=== PATIENT | female | born 1975 | race Caucasian/White ===

== ENCOUNTER 2019-10-09 14:20 | Outpatient (CLI) | payer OTHER, SELFPAY ==
[2019-10-09 14:30] LABS: Basophils Absolute Auto 0.05 K/mm3 (0.00-0.10); Basophils Percent Auto 0.4 % (0.0-1.0); Eosinophils Absolute Auto 0.43 K/mm3 (0.02-0.50); Eosinophils Percent Auto 3.2 % (1.0-6.0); Hematocrit 39.7 % (35.0-49.0); Hemoglobin 12.7 g/dL (12.0-15.0); Immature Granulocyte Absolute 0.06 K/mm3 (0.00-0.00); Immature Granulocyte Percent A 0.4 % (0.0-0.0); Lymphocytes Absolute Auto 2.65 K/mm3 (1.10-4.50); Lymphocytes Percent Auto 19.5 % (18.0-42.0); Mean Corpuscular Volume 87.4 fL (78.0-102.0); Mean Platelet Volume 9.5 fl (9.2-11.8); Monocytes Absolute Auto 0.67 K/mm3 (0.10-0.90); Monocytes Percent Auto 4.9 % (2.0-11.0); Neutrophils Absolute Auto 9.7 K/mm3 (1.7-7.2); Neutrophils Percent Auto 71.6 % (50.0-70.0); Platelet Count Result 310 K/mm3 (150-420); Red Blood Count 4.54 M/mm3 (4.20-5.40); Red Cell Distribution Width 13.2 % (11.6-14.4); White Blood Count 13.6 K/mm3 (4.8-10.8)
[2019-10-09 14:43] LABS: Hemoglobin A1C 6.2 % (<5.7)
[2019-10-09 15:47] LABS: Alanine Aminotransferase 20 U/L (14-59); Albumin Level 3.9 g/dL (3.4-5.0); Alkaline Phosphatase 106 U/L (46-116); Anion Gap 9.3 mmol/L (7-16); Aspartate Amino Transferase 14 U/L (15-37); Bilirubin,Total 0.4 mg/dL (0.00-1.00); Blood Urea Nitrogen 11 mg/dL (7-18); Calcium 9.2 mg/dL (8.5-10.1); Carbon Dioxide 29 mmol/L (21-32); Chloride 105 mmol/L (98-108); Cholesterol 204 mg/dL (0-200); Estimated Glomerular Filt Rate > 60; Glucose 86 mg/dL (70-99); HDL Direct 48 mg/dL (40-60); LDL Cholesterol Calculated 133 mg/dL (<130); Osmolality Calculated 286 mOsm/kg (285-295); Potassium 4.3 mmol/L (3.5-5.1); Sodium 139 mmol/L (136-145); Total Protein 7.2 g/dL (6.4-8.2); Triglycerides 117 mg/dL (0-150)
== END 2019-10-09 14:21 | disposition home or self-care (01) ==
PROVIDERS: PCP Family Medicine; Visit Provider Family Medicine
DX: Z00.00 Encounter for general adult medical examination without abnormal findings (principal); E66.9 Obesity, unspecified; Z86.32 Personal history of gestational diabetes
CPT/HCPCS: 36415; 80053; 80061; 83036; 85025

== ENCOUNTER 2020-02-13 14:27 | Outpatient (CLI) | payer OTHER, SELFPAY ==
--- NOTE | 2020-02-13 14:29 | ECG_ITS ---
Measurements Intervals [place] Rate: 56 P: 42 MD: 146 QRS: 64 QRSD: 98 T: 63 QT: 404 QTc: 390 Interpretive Statements SINUS BRADYCARDIA EARLY PRECORDIAL R/S TRANSITION BORDERLINE ECG Electronically Signed On 02-13-2020 14:58:27 CDT by Fred Davis D.O.
[2020-02-13 14:38] LABS: Hematocrit 39.3 % (35.0-49.0); Hemoglobin 12.4 g/dL (12.0-15.0); Mean Corpuscular HGB Conc 31.6 g/dL (32.0-36.0); Mean Corpuscular Hemoglobin 28.1 pg (27.0-31.0); Mean Corpuscular Volume 88.9 fL (78.0-102.0); Mean Platelet Volume 9.8 fl (9.2-11.8); Platelet Count Result 276 K/mm3 (150-420); Red Blood Count 4.42 M/mm3 (4.20-5.40); Red Cell Distribution Width 13.2 % (11.6-14.4); White Blood Count 8.8 K/mm3 (4.8-10.8)
[2020-02-13 14:59] LABS: Prothrombin Time 10.3 Seconds (9.64-11.0)
[2020-02-13 15:30] LABS: Alanine Aminotransferase 20 U/L (14-59); Albumin Level 3.7 g/dL (3.4-5.0); Alkaline Phosphatase 99 U/L (46-116); Anion Gap 8.3 mmol/L (7-16); Aspartate Amino Transferase 15 U/L (15-37); Bilirubin,Total 0.5 mg/dL (0.00-1.00); Blood Urea Nitrogen 10 mg/dL (7-18); Calcium 9.1 mg/dL (8.5-10.1); Carbon Dioxide 31 mmol/L (21-32); Chloride 104 mmol/L (98-108); Estimated Glomerular Filt Rate > 60; Glucose 84 mg/dL (70-99); Osmolality Calculated 286 mOsm/kg (285-295); Potassium 4.3 mmol/L (3.5-5.1); Sodium 139 mmol/L (136-145); Total Protein 7.2 g/dL (6.4-8.2)
== END 2020-02-13 14:28 | disposition home or self-care (01) ==
LOC: CHSLAB 14:29
PROVIDERS: PCP Family Medicine; Visit Provider Family Medicine
DX: Z01.818 Encounter for other preprocedural examination (principal)
CPT/HCPCS: 36415; 80053; 85027; 85610; 93005

== ENCOUNTER 2020-09-06 16:07 | Outpatient (CLI) | payer OTHER, SELFPAY ==
[2020-09-08 22:34] LABS: SARS-CoV-2 RNA PCR Negative
== END 2020-09-06 16:08 | disposition home or self-care (01) ==
LOC: CHSLAB 16:09
PROVIDERS: PCP Family Medicine; Visit Provider Family Medicine
DX: R05 Cough (principal); Z20.822 Contact with and (suspected) exposure to COVID-19
CPT/HCPCS: C9803; U0003; U0005

== ENCOUNTER 2023-01-11 14:20 | Outpatient (CLI) | payer OTHER, SELFPAY ==
--- NOTE | ~2023-01-11 | XR_ITS ---
XR ankle LT min 3V 01/11/2023 14:45 INDICATION: Left ankle pain PROCEDURE: 4 views left ankle COMPARISON: No prior studies for comparison. FINDINGS: Fracture, dislocation or subluxation is not identified. Ankle mortise intact. The soft tiss ues appear within normal limits. No foreign bodies are identified. Prominent degenerative calcaneal enthesophyte at the plantar surface. IMPRESSION: 1: NO ACUTE BONE OR JOINT ABNORMALITY IDENTIFIED. Reviewed, dictated and finalized at location L.
--- NOTE | ~2023-01-11 | XR_ITS ---
XR lumbar spine 2-3V 01/11/2023 14:45 Indication: Back pain Procedure: 4 views lumbar spine Comparison: No prior studies for comparison. Findings: There is mild dextroscoliosis. Vertebral body heights are maintained. No fracture or trauma tic malalignment. There is mild disc narrowing at L4-5 and L5-S1. No evidence for spondylolisthesis. Pedicles intact. Impression: 1: Mild lumbar spondylosis with dextroscoliosis. Reviewed, dictated and finalized at location [] Impression: 1: Mild lumbar spondylosis with dextroscoliosis.
--- NOTE | ~2023-01-11 | XR_ITS ---
XR hip RT min 2V 01/11/2023 14:45 Indication: Right hip pain after fall Procedure: 2 views right hip Comparison: No prior studies for comparison. Findings: No fracture, subluxation or dislocation. No significant soft tissue abnormality. No foreign bodies. Impression: 1: No significant bone or joint abnormality. Reviewed, dictated and finalized at location L. Impression: 1: No significant bone or joint abnormality.
== END 2023-01-11 14:21 | disposition home or self-care (01) ==
LOC: CHSIMG 14:23
PROVIDERS: PCP Family Medicine; Visit Provider Nurse Practitioner Family
DX: S99.912A Unspecified injury of left ankle, initial encounter (principal); W19.XXXA Unspecified fall, initial encounter; M43.06 Spondylolysis, lumbar region; M41.86 Other forms of scoliosis, lumbar region
CPT/HCPCS: 72100; 73502; 73610

== ENCOUNTER 2023-01-23 16:17 | Outpatient (RCR) | payer OTHER, SELFPAY ==
--- NOTE | 2023-01-23 17:31 | PTOPEVAL1 ---
Assessment and note entered by Dorita Pelayo, PT Evaluation Information Assessment Status Evaluation Diagnosis Lumbar spondylosis, scoliosis Onset 01/09/23 Subjective Information Velma Nolasco reports she slipped on some water on 01/09/23 and landed on her knees and elbows. She started having pain in her lower back that radiated to her right hip and her left ankle was swollen. She saw the doctor 2 days after the injury and underwent a right hip and left ankle x- ray that came back normal. She then was ordered PT for her back. She is having off and on low back pain that is worse with bending over at the waist, sitting when leaning to the side, and sleeping on her back or side. She is normally a side sleeper and so is having difficulty sleeping. She also is limited with lifting her son and with daily activities including dressing her LE. She is also limited to lifting less than 25 lbs to avoid pain. 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 She is using a muscle relaxer to sleep at night and ibuprofen during the day to help with pain. Reported Pain Level Pain Score 4: Self Report Assessment PT Clinical Summary Velma Nolasco presents with acute right low back pain following a fall on 01/09/23. 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 She objectively demonstrates tenderness in the right SIJ and gluteals, decreased and painful lumbar AROM, decreased right hip strength, positive special tests for SIJ dysfunction, and decreased functional abilities. She will benefit from skilled PT to address these limitations. Plan of Care Interventions Electrical Stimulation,Hot Pack/Cold Pack,Manual Therapy,Neuro Re-education,Patient/Caregiver Educati,Therapeutic Activities,Therapeutic Exercise PT Services Indicated Yes Treatment Frequency and 2 times a week for 8 visits Duration These treatments will address the objective and functional deficits as defined above. The patient will be advanced safely and appropriately in order for the patient to progress towards his/her prior level of function. Additional exercises will be introduced and as well as a comprehensive home exercise program upon discharge, if needed, ?to ensure carryover of functional gains achieved in the clinic. This treatment plan has been reviewed and agreement upon by the patient.
--- NOTE | 2023-01-23 17:32 | OPREHPOC ---
Outpatient Therapy Plan of Care This is a Multidisciplinary Plan of Care that may contain components documented by all disciplines (PT, OT, and ST.) PT Problem 1 PT Problem #1 Knowledge Deficit PT Goal 1 Goal The patient will demonstrate independence in a home exercise program for core strength, stability , and LE flexibility. Target Visit 8 PT Problem 2 PT Problem #2 Pain PT Goal 1 Goal The patient will report no greater than 2/10 low back pain with ADLs and work activities. Target Visit 8 PT Problem 3 PT Problem #3 Pain PT Goal 1 Goal The patient will demonstrate 5/5 strength in right hip to provide support for lifting and bending. Target Visit 8 PT Problem 4 PT Problem #4 Impaired Functional ADLs PT Goal 1 Goal The patient will demonstrate the ability to lift 40 lbs from floor to waist with 0/10 LBP. Target Visit 8
--- NOTE | 2023-02-19 08:13 | OPREHPOC ---
Outpatient Therapy Plan of Care This is a Multidisciplinary Plan of Care that may contain components documented by all disciplines (PT, OT, and ST.) PT Problem 1 PT Problem #1 Knowledge Deficit PT Goal 1 Goal The patient will demonstrate independence in a home exercise program for core strength, stability , and LE flexibility. Target Visit 8 Progress Met PT Problem 2 PT Problem #2 Pain PT Goal 1 Goal The patient will report no greater than 2/10 low back pain with ADLs and work activities. Target Visit 14 Comment continue PT Problem 3 PT Problem #3 Pain PT Goal 1 Goal The patient will demonstrate 5/5 strength in right hip to provide support for lifting and bending. Target Visit 14 Comment continue PT Problem 4 PT Problem #4 Impaired Functional ADLs PT Goal 1 Goal The patient will demonstrate the ability to lift 40 lbs from floor to waist with 0/10 LBP. Target Visit 14 Comment continue
--- NOTE | 2023-02-19 08:13 | PTOPREEVAL ---
Assessment and note entered by Rubi Faith DPT Evaluation Information Assessment Status Re-evaluation Diagnosis Lumbar spondylosis, scoliosis Onset 01/09/23 Subjective Information Patient reports she has noticed some improvements since starting PT but pain is still present. She reports she is able to sit in her chair for longer periods of time and go outside and play with her son. She reports difficulty with heavy house hold and work task and sleeping. She reports she is performing HEP. Reported Pain Level Pain Score 7: Self Report Assessment PT Clinical Summary Patient has been seen for 8 visits of skilled PT. Patient has made progress towards all goals with improved LE strength and lumbar ROM and reported improvement in sitting tolerance and ability to play with her son. Patient continues to have difficulty with heavy house hold and work tasks and would benefit from continued skilled PT to address remaining impairments and return to PLOF. Plan of Care Interventions Electrical Stimulation,Hot Pack/Cold Pack,Manual Therapy,Neuro Re-education,Patient/Caregiver Educati,Therapeutic Activities,Therapeutic Exercise PT Services Indicated Yes Treatment Frequency and 2x weekly for 6 more visits Duration These treatments will address the objective and functional deficits as defined above. The patient will be advanced safely and appropriately in order for the patient to progress towards his/her prior level of function. Additional exercises will be introduced and as well as a comprehensive home exercise program upon discharge, if needed, ?to ensure carryover of functional gains achieved in the clinic. This treatment plan has been reviewed and agreement upon by the patient.
--- NOTE | 2023-03-26 07:11 | PTOPDC ---
Assessment and note entered by Rubi Faith DPT Evaluation Information Assessment Status Evaluation Diagnosis Lumbar spondylosis, scoliosis Onset 01/09/23 Subjective Information Patient reports that back has been feeling good. She reports she does still have pain but it does not limit her from doing anything and she has been able to return to PLOF. She reports independence with HEP Assessment PT Clinical Summary Patient attended 14 visits of skilled PT with great progress towards goals. Patient demonstrates decrease in pain levels and increased in LE strength allowing her to return to ADLs at PLOF. Patient is independent with HEP and is appropriate for DC at this time. Plan of Care PT Services Indicated No
--- NOTE | 2023-03-26 07:11 | OPREHPOC ---
Outpatient Therapy Plan of Care This is a Multidisciplinary Plan of Care that may contain components documented by all disciplines (PT, OT, and ST.) PT Problem 1 PT Problem #1 Knowledge Deficit PT Goal 1 Goal The patient will demonstrate independence in a home exercise program for core strength, stability , and LE flexibility. Target Visit 8 Progress Met PT Problem 2 PT Problem #2 Pain PT Goal 1 Goal The patient will report no greater than 2/10 low back pain with ADLs and work activities. Target Visit 14 Progress Not Met Comment continue PT Problem 3 PT Problem #3 Pain PT Goal 1 Goal The patient will demonstrate 5/5 strength in right hip to provide support for lifting and bending. Target Visit 14 Progress Partially Met Comment continue PT Problem 4 PT Problem #4 Impaired Functional ADLs PT Goal 1 Goal The patient will demonstrate the ability to lift 40 lbs from floor to waist with 0/10 LBP. Target Visit 14 Progress Met Comment continue
== END 2023-03-23 10:13 | disposition home or self-care (01) ==
LOC: CHSPT 16:17
PROVIDERS: PCP Family Medicine; Visit Provider Nurse Practitioner Family
DX: M41.86 Other forms of scoliosis, lumbar region (principal); M47.816 Spondylosis without myelopathy or radiculopathy, lumbar region
CPT/HCPCS: 97014; 97110; 97140; 97150; 97161; 97530; G0283

== ENCOUNTER 2023-03-05 08:10 | Outpatient (CLI) | payer OTHER, SELFPAY ==
--- NOTE | ~2023-03-05 | XR_ITS ---
EXAMINATION: XR foot LT min 3V DATE: 03/05/2023 08:24 INDICATION: Dorsal left foot pain. TECHNIQUE: 4 views of left foot were obtained. COMPARISON: Left ankle radiographs 01/11/2023 FINDINGS: Bone alignment is normal. No fracture. There is internal fixation of neck of second metatar sharita with 2 screws. There is moderate osteoarthritis of first metatarsophalangeal joint. There is an e nthesophyte at plantar aspect of calcaneal tuberosity. IMPRESSION: 1. Moderate osteoarthritis of first metatarsophalangeal joint. Reviewed, dictated and finalized at location A.
== END 2023-03-05 08:11 | disposition home or self-care (01) ==
LOC: CHSIMG 08:11
PROVIDERS: PCP Nurse Practitioner Family; Visit Provider Nurse Practitioner Family
DX: M79.672 Pain in left foot (principal); W19.XXXA Unspecified fall, initial encounter; M19.072 Primary osteoarthritis, left ankle and foot
CPT/HCPCS: 73630

== ENCOUNTER 2023-03-07 07:55 | Outpatient (CLI) | payer OTHER, SELFPAY ==
[2023-03-07 08:07] LABS: Basophils Absolute Auto 0.05 K/mm3 (0.00-0.10); Basophils Percent Auto 0.8 % (0.0-1.0); Eosinophils Absolute Auto 0.23 K/mm3 (0.02-0.50); Eosinophils Percent Auto 3.7 % (1.0-6.0); Hemoglobin 12.1 g/dL (12.0-15.0); Immature Granulocyte Absolute 0.02 K/mm3 (0.00-0.00); Immature Granulocyte Percent A 0.3 % (0.0-0.0); Lymphocytes Absolute Auto 2.15 K/mm3 (1.10-4.50); Lymphocytes Percent Auto 34.3 % (18.0-42.0); Mean Corpuscular HGB Conc 31.8 g/dL (32.0-36.0); Mean Corpuscular Hemoglobin 28.1 pg (27.0-31.0); Mean Corpuscular Volume 88.2 fL (78.0-102.0); Mean Platelet Volume 9.5 fl (9.2-11.8); Monocytes Absolute Auto 0.44 K/mm3 (0.10-0.90); Neutrophils Absolute Auto 3.4 K/mm3 (1.7-7.2); Neutrophils Percent Auto 53.9 % (50.0-70.0); Platelet Count Result 311 K/mm3 (150-420); Red Blood Count 4.31 M/mm3 (4.20-5.40); Red Cell Distribution Width 13.1 % (11.6-14.4); White Blood Count 6.3 K/mm3 (4.8-10.8)
[2023-03-07 08:40] LABS: Alanine Aminotransferase 18 U/L (14-59); Albumin Level 3.6 g/dL (3.4-5.0); Alkaline Phosphatase 98 U/L (46-116); Anion Gap 9 mmol/L (8-16); Aspartate Amino Transferase 16 U/L (15-37); Bilirubin,Total 0.5 mg/dL (0.00-1.00); Blood Urea Nitrogen 12 mg/dL (7-18); Calcium 9.2 mg/dL (8.5-10.1); Carbon Dioxide 27 mmol/L (21-32); Chloride 104 mmol/L (98-108); Cholesterol 217 mg/dL (0-200); Estimated Glomerular Filt Rate > 60; Glucose 105 mg/dL (70-99); HDL Direct 43 mg/dL (40-60); LDL Cholesterol Calculated 148 mg/dL (<130); Osmolality Calculated 289 mOsm/kg (285-295); Potassium 4.1 mmol/L (3.5-5.1); Sodium 140 mmol/L (136-145); Thyroid Stimulating Hormone 2.24 uIU/mL (0.36-3.74); Total Protein 7.1 g/dL (6.4-8.2); Triglycerides 132 mg/dL (0-150)
== END 2023-03-07 07:56 | disposition home or self-care (01) ==
LOC: CHSLAB 07:56
PROVIDERS: PCP Nurse Practitioner Family; Visit Provider Nurse Practitioner Family
DX: Z00.00 Encounter for general adult medical examination without abnormal findings (principal)
CPT/HCPCS: 36415; 80053; 80061; 84443; 85025

== ENCOUNTER 2024-12-11 11:05 | Outpatient (CLI) | payer MEDICAID, SELFPAY | END 2024-12-11 11:06 | disposition home or self-care (01) | PROVIDERS: PCP Nurse Practitioner Family; Visit Provider Nurse Practitioner Family | DX: M25.561 Pain in right knee (principal) | CPT/HCPCS: 73564 ==

== ENCOUNTER 2025-02-19 14:34 | Outpatient (RCR) | payer OTHER, SELFPAY ==
--- NOTE | 2025-02-19 15:19 | OPREHPOC ---
Outpatient Therapy Plan of Care This is a Multidisciplinary Plan of Care that may contain components documented by all disciplines (PT, OT, and ST.) PT Problem 1 PT Problem #1 Knowledge Deficit PT Goal 1 Goal / Goal Update independent and compliant with HEP Target Visit 6 PT Problem 2 PT Problem #2 Pain PT Goal 1 Goal / Goal Update pain at worst to be no more than 3/10 in the R knee. Target Visit 12 PT Problem 3 PT Problem #3 Impaired Range of Motion PT Goal 1 Goal / Goal Update 0-130 active R knee rom Target Visit 12 PT Problem 4 PT Problem #4 Impaired Strength PT Goal 1 Goal / Goal Update 5/5 R knee strength no extension lag of the R knee with SLR Target Visit 12 PT Problem 5 PT Problem #5 Impaired Functional Mobility PT Goal 1 Goal / Goal Update LEFS to display 10% or less functional deficits patient to roll over in bed without increased R knee pain patient to squat with safe mechanics to lift objects from floor Target Visit 12
--- NOTE | 2025-02-19 15:19 | PTOPEVAL1 ---
Assessment and note entered by JT File, PT Evaluation Information Assessment Status Evaluation ICD-10 Condition Codes (PT) Pain in right knee M25.561 Onset 01/20/25 Subjective Information patient reports she felt a big pop in the knee about 1 month ago while she was at work. she reports she was walking and the knee gave out and she felt a big pop. she is not sure if she was turning or anything more dynamic at the time. she reports she has increased pain with certain movements like when laying at turning the leg over . she reports she does also have occasional pain when standing and walking, but infrequent. she reports her symptoms are not improving or worsening at this time. she was denied an MRI until she completes a bout of PT. she reports she did have an xray which was negative. Reported Pain Level Pain Score 2: Self Report Assessment PT Clinical Summary mrs. roman is a 49 yo woman who presents to skilled PT for evaluation and treatment of R knee pain. she presents today with signs and symptoms of a possible partial R medial meniscus tear. she presents with decreased arom R knee flexion, slight R knee extension lag in SLR, and weakness of the R knee and hip. continued skilled PT is indicated to improve her objective/functional deficits and progress towards a return to her prior level functional activity performance/ quality of life. Plan of Care Interventions Electrical Stimulation,Gait Training,Hot Pack/Cold Pack,Manual Therapy,Neuro Re-education,Patient/ Caregiver Education,Therapeutic Activities, Therapeutic Exercise,Ultrasound,Other Other Interventions dry needling PT Services Indicated Yes Treatment Frequency and 3x weekly for 12 visits Duration These treatments will address the objective and functional deficits as defined above. The patient will be advanced safely and appropriately in order for the patient to progress towards his/her prior level of function. Additional exercises will be introduced and as well as a comprehensive home exercise program upon discharge, if needed, ?to ensure carryover of functional gains achieved in the clinic. This treatment plan has been reviewed and agreement upon by the patient.
--- NOTE | 2025-03-19 16:03 | OPREHPOC ---
Outpatient Therapy Plan of Care This is a Multidisciplinary Plan of Care that may contain components documented by all disciplines (PT, OT, and ST.) PT Problem 1 PT Problem #1 Knowledge Deficit PT Goal 1 Goal / Goal Update independent and compliant with HEP Target Visit 6 Progress Met PT Problem 2 PT Problem #2 Pain PT Goal 1 Goal / Goal Update pain at worst to be no more than 3/10 in the R knee. Target Visit 12 Progress Met PT Problem 3 PT Problem #3 Impaired Range of Motion PT Goal 1 Goal / Goal Update 0-130 active R knee rom Target Visit 12 Progress Met PT Problem 4 PT Problem #4 Impaired Strength PT Goal 1 Goal / Goal Update 5/5 R knee strength no extension lag of the R knee with SLR Target Visit 12 Progress Met PT Problem 5 PT Problem #5 Impaired Functional Mobility PT Goal 1 Goal / Goal Update LEFS to display 10% or less functional deficits patient to roll over in bed without increased R knee pain patient to squat with safe mechanics to lift objects from floor Target Visit 12 Progress Met
--- NOTE | 2025-03-19 16:03 | PTOPDC ---
Assessment and note entered by Dorita Pelayo, PT Evaluation Information Assessment Status Discharge ICD-10 Condition Codes (PT) Pain in right knee M25.561 Onset 01/20/25 Subjective Information Velma reports her right knee is doing much better . She is not having pain currently and has had pain in the last week. She is able to perform all daily and job tasks without difficulty. Reported Pain Level Pain Score 0: Self Report Assessment PT Clinical Summary Velma Nolasco is a 49 yo woman who has completed 8 skilled PT visits for R knee pain. She is reporting improved right knee pain and improved ability to perform daily and job tasks. She demonstrates improved right knee AROM to +4- 130 degrees, improved knee and hip strength, and improved functional mobility. She has met all goals and will be discharged from skilled PT. Plan of Care PT Services Indicated No
== END 2025-03-19 20:00 | disposition home or self-care (01) ==
LOC: CHSPT 14:34
PROVIDERS: PCP Nurse Practitioner Family; Visit Provider Nurse Practitioner Family
DX: R29.898 Other symptoms and signs involving the musculoskeletal system (principal); M25.561 Pain in right knee
CPT/HCPCS: 97110; 97112; 97140; 97161; 97530; 97750